=== PATIENT | male | born 1945 | race Caucasian/White ===

== ENCOUNTER 2017-02-08 11:15 | Emergency (ER) | payer OTHER, BC ==
[~2017-02-08] VITALS: Ht 175.3 cm; Wt 88.6 kg
[~2017-02-08 11:15] MED LIST: ADVAIR 250/501 DISK IH; ASPIR 8181 M1 PO; AVAPRO150 MG PO; CLARITIN10 MG PO; LEVAQUIN750 MG PO; LOFIBRA,TRIGLI160 MG PO; LORATADINE10 M2 PO; LOW DOSE ASPIRI81 M1 PO; NIACIN500 M1; NIACIN500 M1 PO; NIASPAN,SLO-N1000 MG PO; PREDNISONE20 MG PO; SIMVASTATIN40 MG PO; SINGULAIR10 MG PO; SPIRIVA1 INHALATI IH; TOPROL XL50 MG PO; TRIGLIDE160 MG PO; VENTOLIN HFA18 GM IH; ZESTRIL,PRINIVI20 MG PO; ZITHROMAX Z-PA250 MG PO; ZOCOR40 MG PO
[2017-02-08 12:54] LABS: BASOPHIL COUNT 0.1 K/uL (0-0.1); EOSINOPHIL (%) 2.5 % (0-5); EOSINOPHIL COUNT 0.3 K/uL (0-0.3); HEMATOCRIT 45.8 % (38.0-50.0); IMMATURE GRANULOCYTE (%) 1.4 % (0.0-0.7); IMMATURE GRANULOCYTE COUNT 0.2 K/uL; INSTRUMENT ABS NEUTROPHIL CT 7.8 K/uL; LYMPHOCYTE COUNT 1.8 K/uL (1.0-2.8); MCHC 32.3 G/DL (30.0-36.0); MCV 89.8 FL (86-99); MEAN PLAT.VOLUME 10.2 uM^3 (9.0-12.4); MONOCYTE COUNT 0.8 K/uL (0-0.8); NEUTROPHIL (%) 72.2 % (45-76); NEUTROPHIL COUNT 7.8 K/uL (1.8-6.4); PLATELET COUNT 330 K/uL (156-360); RBC DIS.WIDTH-CV 12.8 % (11.8-14.6); RBC DIS.WIDTH-SD 41.9 % (39-53); WHITE BLOOD COUNT 10.8 K/uL (4.1-10.2)
[2017-02-08 13:07] LABS: CHLORIDE 109 mEq/L (99-109); POTASSIUM 4.3 mEq/L (3.7-5.4); SODIUM 145 mEq/L (136-147)
[2017-02-08 13:09] LABS: GLUCOSE 141 mg/dL (70-99)
[2017-02-08 13:10] LABS: ANION GAP 12 MEQ/L (2-14)
[2017-02-08 13:11] LABS: TOTAL BILIRUBIN 0.4 mg/dL (0.0-1.0)
[2017-02-08 13:12] LABS: ALKALINE PHOSPHATASE 69 IU/L (3-129)
[2017-02-08 13:13] LABS: GFR ESTIMATE (CALCULATED) > 59 mL/min/
[2017-02-08 13:14] LABS: UREA NITROGEN (BUN) 15 mg/dL (9-23)
[2017-02-08 13:16] LABS: LIPASE 30 U/L (1.0-51.0)
[2017-02-08 13:55] LABS: TROP-I INTERPRETATION NEGATIVE; TROPONIN-I < 0.01 ng/mL (0.0-0.30)
[2017-02-08] MEDS ORDERED: COLACE100 MG PO (14:05)
[2017-02-08] MEDS ORDERED: ZOFRAN ODT8 MG PO (14:05)
[2017-02-08] MEDS ORDERED: CARAFATE1 GM PO (14:05)
[2017-02-08] MEDS ORDERED: PRILOSEC OTC20 MG PO (14:05)
[2017-02-08 14:59] VITALS: BP 149/93
== END 2017-02-08 14:45 | disposition home or self-care (01) ==
LOC: EME 11:15
PROVIDERS: Emergency Medicine
DX: K29.70 Gastritis, unspecified, without bleeding (principal); J44.9 Chronic obstructive pulmonary disease, unspecified; I10 Essential (primary) hypertension; I25.2 Old myocardial infarction; Z87.891 Personal history of nicotine dependence
CPT/HCPCS: 74177; 80053; 83690; 84484; 85025; 93005; 99281; 99285; J1170; J7030; J7050; S0028

== ENCOUNTER 2017-04-04 10:16 | Inpatient (IN) | payer OTHER, BC ==
[~2017-04-04] VITALS: Ht 175.3 cm; Wt 82.8 kg
[~2017-04-04 10:16] MED LIST changes: +CARAFATE1 GM PO; +COLACE100 MG PO; +PRILOSEC OTC20 MG PO; +ZOFRAN ODT8 MG PO
[2017-04-04 10:55] LABS: HEMATOCRIT 46.1 % (38.0-50.0); MCH 28.3 PG (29.0-34.0); MCHC 31.7 G/DL (30.0-36.0); MCV 89.3 FL (86-99); MEAN PLAT.VOLUME 9.4 uM^3 (9.0-12.4); PLATELET COUNT 270 K/uL (156-360); RBC DIS.WIDTH-CV 14.6 % (11.8-14.6); RBC DIS.WIDTH-SD 47.7 % (39-53); RED BLOOD COUNT 5.16 M/uL (4.00-5.50)
[2017-04-04 11:12] LABS: CHLORIDE 103 mEq/L (99-109); POTASSIUM 4.4 mEq/L (3.7-5.4); SODIUM 139 mEq/L (136-147)
[2017-04-04 11:13] LABS: GLUCOSE 114 mg/dL (70-99)
[2017-04-04 11:15] LABS: ANION GAP 12 MEQ/L (2-14)
[2017-04-04 11:17] LABS: GFR ESTIMATE (CALCULATED) > 59 mL/min/
[2017-04-04 11:18] LABS: TROP-I INTERPRETATION NEGATIVE; TROPONIN-I < 0.01 ng/mL (0.0-0.30); UREA NITROGEN (BUN) 23 mg/dL (9-23)
[2017-04-04] MEDS ORDERED: LORATADINE10 M2 PO (15:15)
[2017-04-04] MEDS ORDERED: PREDNISONE5 MG PO (15:17)
[2017-04-04] MEDS ORDERED: ERGOCALCIF50000 UNIT PO (15:18)
[2017-04-04] MEDS ORDERED: SPIRIVA1 INHALATI IH (15:18)
[2017-04-04] MEDS ORDERED: ACETAMINOPHEN500 M9 PO (15:19)
[2017-04-04 21:18] LABS: D-DIMER ELISA > 4.00 mg/L FEU (< 0.57)
[2017-04-04 21:24] LABS: TOTAL BILIRUBIN 0.7 mg/dL (0.0-1.0)
[2017-04-04 21:25] LABS: ALKALINE PHOSPHATASE 124 IU/L (3-129)
[2017-04-04 21:28] LABS: DIRECT BILIRUBIN 0.3 mg/dL (0.0-0.3)
[2017-04-04 21:31] LABS: TROP-I INTERPRETATION NEGATIVE; TROPONIN-I < 0.01 ng/mL (0.0-0.30)
[2017-04-04 22:17] VITALS: BP 171/79
[2017-04-05] VITALS (8 sets, daily range): BP systolic 93–131; BP diastolic 53–74
[2017-04-05 04:31] LABS: ADD MIUA? NO; BILIRUBIN NEGATIVE; BLOOD NEGATIVE; COLOR YELLOW ((YELLOW)); GLUCOSE (STRIP) NEGATIVE; KETONES NEGATIVE; LEUKOCYTES NEGATIVE; NITRITE NEGATIVE; PROTEIN (STRIP) NEGATIVE; SPECIFIC GRAVITY 1.014 (1.000-1.030); UROBILINOGEN 0.2 MG/DL (0.2-1.0)
[2017-04-05 06:07] LABS: HEMATOCRIT 44.3 % (38.0-50.0); MCH 28.6 PG (29.0-34.0); MCHC 32.3 G/DL (30.0-36.0); MCV 88.6 FL (86-99); MEAN PLAT.VOLUME 9.5 uM^3 (9.0-12.4); PLATELET COUNT 261 K/uL (156-360); RBC DIS.WIDTH-CV 14.7 % (11.8-14.6); RBC DIS.WIDTH-SD 47.3 % (39-53); WHITE BLOOD COUNT 15.3 K/uL (4.1-10.2)
[2017-04-05 06:36] LABS: ANION GAP 11 MEQ/L (2-14); CHLORIDE 99 MEQ/L (99-109); GFR ESTIMATE (CALCULATED) > 59 mL/min/; GLUCOSE 111 mg/dL (70-99); POTASSIUM 4.6 MEQ/L (3.7-5.4); SAMPLE HEMOLYSIS CHECK 0; SAMPLE ICTERIC CHECK 0; SAMPLE LIPEMIA CHECK 0; SODIUM 135 MEQ/L (136-147); UREA NITROGEN (BUN) 17 mg/dL (9-23)
[2017-04-05 06:43] LABS: TROP-I INTERPRETATION NEGATIVE; TROPONIN-I < 0.01 ng/mL (0.0-0.30)
[2017-04-06 03:52] VITALS: BP 127/74
[2017-04-06 05:58] LABS: EOSINOPHIL (%) 0.2 % (0-5); HEMATOCRIT 40.4 % (38.0-50.0); IMMATURE GRANULOCYTE (%) 1.3 % (0.0-0.7); IMMATURE GRANULOCYTE COUNT 0.2 K/uL; LYMPHOCYTE COUNT 1.9 K/uL (1.0-2.8); MCH 28.3 PG (29.0-34.0); MCHC 31.9 G/DL (30.0-36.0); MCV 88.6 FL (86-99); MEAN PLAT.VOLUME 9.5 uM^3 (9.0-12.4); MONOCYTE (%) 9.3 % (3-12); MONOCYTE COUNT 1.1 K/uL (0-0.8); NEUTROPHIL (%) 73.6 % (45-76); PLATELET COUNT 215 K/uL (156-360); RBC DIS.WIDTH-CV 14.6 % (11.8-14.6); RBC DIS.WIDTH-SD 47.6 % (39-53); RED BLOOD COUNT 4.56 M/uL (4.00-5.50); WHITE BLOOD COUNT 12.2 K/uL (4.1-10.2)
[2017-04-06 06:22] LABS: IMMUNOGLOBULIN A 236 MG/DL (40-350); IMMUNOGLOBULIN G 527 MG/DL (650-1600); IMMUNOGLOBULIN M 70 MG/DL (50-300)
[2017-04-06 07:30] VITALS: BP 117/77
[2017-04-06 08:25] LABS: ANION GAP 10 MEQ/L (2-14); CHLORIDE 102 MEQ/L (99-109); GFR ESTIMATE (CALCULATED) > 59 mL/min/; LACTATE DEHYDROGENASE 419 IU/L (20-246); POTASSIUM 4.5 MEQ/L (3.7-5.4); SAMPLE HEMOLYSIS CHECK 0; SAMPLE ICTERIC CHECK 0; SAMPLE LIPEMIA CHECK 0; SODIUM 137 MEQ/L (136-147); UREA NITROGEN (BUN) 21 mg/dL (9-23)
[2017-04-06 08:40] LABS: GLUCOSE 172 mg/dL (70-99)
[2017-04-06 11:20] VITALS: BP 136/65
[2017-04-06 15:25] VITALS: BP 132/77
[2017-04-06 18:54] VITALS: BP 138/64
[2017-04-06 23:06] VITALS: BP 142/81
[2017-04-06 23:18] LABS: URINE TOTAL PROTEIN 20 MG/DL (0-10)
[2017-04-07 03:14] VITALS: BP 148/69
[2017-04-07 07:02] LABS: GLOBULINS 2.7 G/DL (2.3-3.5)
[2017-04-07 07:19] VITALS: BP 111/70
[2017-04-07 10:32] LABS: IFE GEL NO. 72-9
[2017-04-07 11:22] VITALS: BP 137/78
[2017-04-07 11:32] LABS: HEMATOCRIT 41.5 % (38.0-50.0); MCH 28.4 PG (29.0-34.0); MCHC 31.8 G/DL (30.0-36.0); MCV 89.4 FL (86-99); MEAN PLAT.VOLUME 9.7 uM^3 (9.0-12.4); PLATELET COUNT 190 K/uL (156-360); RBC DIS.WIDTH-CV 14.8 % (11.8-14.6); RBC DIS.WIDTH-SD 48.1 % (39-53); RED BLOOD COUNT 4.64 M/uL (4.00-5.50); WHITE BLOOD COUNT 11.8 K/uL (4.1-10.2)
[2017-04-07 11:54] LABS: ANION GAP 9 MEQ/L (2-14); CHLORIDE 100 MEQ/L (99-109); GFR ESTIMATE (CALCULATED) > 59 mL/min/; POTASSIUM 4.6 MEQ/L (3.7-5.4); SAMPLE HEMOLYSIS CHECK 0; SAMPLE ICTERIC CHECK 0; SAMPLE LIPEMIA CHECK 0; SODIUM 135 MEQ/L (136-147); UREA NITROGEN (BUN) 18 mg/dL (9-23)
[2017-04-07 11:58] LABS: GLUCOSE 109 mg/dL (70-99)
[2017-04-07 13:35] LABS: ALBUMIN PERCENT 48.3 %; ALPHA-1 GLOBULIN 0.35 G/DL (0.15-0.40); ALPHA-1 PERCENT 6.1 %; ALPHA-2 GLOBULIN 1.05 G/DL (0.45-0.85); ALPHA-2 PERCENT 18.1 %; GAMMA PERCENT 14.5 %
[2017-04-07 15:32] VITALS: BP 108/68
[2017-04-07 20:50] VITALS: BP 107/75
[2017-04-08] VITALS (9 sets, daily range): BP systolic 92–133; BP diastolic 57–69
[2017-04-08 06:49] LABS: EOSINOPHIL (%) 1.2 % (0-5); EOSINOPHIL COUNT 0.1 K/uL (0-0.3); IMMATURE GRANULOCYTE COUNT 0.1 K/uL; INSTRUMENT ABS NEUTROPHIL CT 7.7 K/uL; MCH 28.6 PG (29.0-34.0); MCHC 32.1 G/DL (30.0-36.0); MCV 89.2 FL (86-99); MEAN PLAT.VOLUME 9.8 uM^3 (9.0-12.4); MONOCYTE (%) 12.3 % (3-12); MONOCYTE COUNT 1.4 K/uL (0-0.8); NEUTROPHIL (%) 67.8 % (45-76); NEUTROPHIL COUNT 7.7 K/uL (1.8-6.4); PLATELET COUNT 221 K/uL (156-360); RBC DIS.WIDTH-CV 14.8 % (11.8-14.6); RED BLOOD COUNT 4.82 M/uL (4.00-5.50); WHITE BLOOD COUNT 11.4 K/uL (4.1-10.2)
[2017-04-08 07:19] LABS: ALKALINE PHOSPHATASE 93 IU/L (3-129); ANION GAP 11 MEQ/L (2-14); CHLORIDE 97 MEQ/L (99-109); GFR ESTIMATE (CALCULATED) > 59 mL/min/; GLUCOSE 111 mg/dL (70-99); POTASSIUM 4.8 MEQ/L (3.7-5.4); SAMPLE HEMOLYSIS CHECK 0; SAMPLE ICTERIC CHECK 0; SAMPLE LIPEMIA CHECK 0; SODIUM 135 MEQ/L (136-147); TOTAL BILIRUBIN 1.2 MG/DL (0.0-1.0); UREA NITROGEN (BUN) 18 mg/dL (9-23)
[2017-04-08 09:14] LABS: INTER. NORMALIZED RATIO 1.2; PROTHROMBIN TIME 11.9 (9.2-11.2)
[2017-04-09 04:27] VITALS: BP 111/67
[2017-04-09 08:52] VITALS: BP 113/66
[2017-04-09] MEDS ORDERED: GABAPENTIN100 MG PO (09:10)
[2017-04-09] MEDS ORDERED: IRBESARTAN75 MG PO (09:10)
[2017-04-09] MEDS ORDERED: XARELTO20 MG PO (09:10)
[2017-04-09] MEDS ORDERED: ENDOCET 5-3251 EACH PO (09:10)
[2017-04-09 09:57] LABS: IFE GEL NO. 73-4
[2017-04-10 13:42] LABS: Flow Clinical Information NOT PROVIDED (()); Flow Number of Markers 22 (()); Flow Spec Viability 58 % (())
== END 2017-04-09 13:30 | disposition home or self-care (01) | DRG 988 ==
LOC: EME 10:16 → 5WEST 20:10 → EDOF 20:10 → 5WEST 22:04 → 4EAST 04-05 14:15 → 5WEST 04-05 14:15 → 4EAST 04-05 20:46
PROVIDERS: Anesthesiology; Hospitalist; Internal Medicine; Nurse Practitioner Adult Health; Radiology Diagnostic Radiology
PROC: 0PB43ZX Excision of Thoracic Vertebra, Percutaneous Approach, Diagnostic (ICD-10-PCS; principal; 2017-04-08)
DX: I48.0 Paroxysmal atrial fibrillation (principal); C79.51 Secondary malignant neoplasm of bone; J44.9 Chronic obstructive pulmonary disease, unspecified; M47.892 Other spondylosis, cervical region; E78.5 Hyperlipidemia, unspecified; I10 Essential (primary) hypertension; I25.10 Atherosclerotic heart disease of native coronary artery without angina pectoris; K76.0 Fatty (change of) liver, not elsewhere classified; M35.3 Polymyalgia rheumatica; T38.0X5A Adverse effect of glucocorticoids and synthetic analogues, initial encounter; M48.02 Spinal stenosis, cervical region; M54.14 Radiculopathy, thoracic region; E66.01 Morbid (severe) obesity due to excess calories; Z79.01 Long term (current) use of anticoagulants; Z95.5 Presence of coronary angioplasty implant and graft; Z68.27 Body mass index [BMI] 27.0-27.9, adult; Z87.891 Personal history of nicotine dependence; I25.2 Old myocardial infarction; Z83.3 Family history of diabetes mellitus; Z82.49 Family history of ischemic heart disease and other diseases of the circulatory system
CPT/HCPCS: 71020; 71275; 72128; 72156; 72157; 77012; 80048; 80053; 80076; 81003; 82784 90; 83605; 83615; 84165; 84484; 85025; 85027; 85379; 85610; 85730; 86334; 86335; 87040; 88184 90; 88185 90; 88189 90; 88305; 88311; 88341 TC; 88342 TC; 93005; 93970; 94640; 94640 76; 94664; 94799; 99202; 99281; 99285; G0378; J0696; J1160; J1644; J2405; J3010; J7030; J7050; J7512

== ENCOUNTER 2017-05-13 09:38 | Inpatient (IN) | payer OTHER, BC ==
[~2017-05-13] VITALS: Ht 176.5 cm; Wt 76.6 kg
[2017-05-13] VITALS (11 sets, daily range): BP systolic 98–137; BP diastolic 64–85
[~2017-05-13 09:38] MED LIST changes: +ACETAMINOPHEN500 M9 PO; +ENDOCET 5-3251 EACH PO; +ERGOCALCIF50000 UNIT PO; +GABAPENTIN100 MG PO; +IRBESARTAN75 MG PO; +PREDNISONE5 MG PO; +XARELTO20 MG PO
[2017-05-13 10:33] LABS: EOSINOPHIL (%) 1.2 % (0-5); EOSINOPHIL COUNT 0.1 K/uL (0-0.3); HEMATOCRIT 41.2 % (38.0-50.0); IMMATURE GRANULOCYTE (%) 0.9 % (0.0-0.7); IMMATURE GRANULOCYTE COUNT 0.1 K/uL; INSTRUMENT ABS NEUTROPHIL CT 8.4 K/uL; LYMPHOCYTE COUNT 2.3 K/uL (1.0-2.8); MCH 27.7 PG (29.0-34.0); MCHC 31.6 G/DL (30.0-36.0); MCV 87.7 FL (86-99); MEAN PLAT.VOLUME 9.4 uM^3 (9.0-12.4); NEUTROPHIL (%) 70.6 % (45-76); NEUTROPHIL COUNT 8.4 K/uL (1.8-6.4); PLATELET COUNT 399 K/uL (156-360); RBC DIS.WIDTH-CV 15.9 % (11.8-14.6); RBC DIS.WIDTH-SD 51.1 % (39-53); WHITE BLOOD COUNT 11.9 K/uL (4.1-10.2)
[2017-05-13 10:56] LABS: ANION GAP 15 MEQ/L (2-14); CHLORIDE 98 MEQ/L (99-109); POTASSIUM 4.3 MEQ/L (3.7-5.4); SAMPLE HEMOLYSIS CHECK 0; SAMPLE ICTERIC CHECK 0; SAMPLE LIPEMIA CHECK 0; SODIUM 135 MEQ/L (136-147); TOTAL BILIRUBIN 0.9 MG/DL (0.0-1.0)
[2017-05-13 11:02] LABS: ALKALINE PHOSPHATASE 142 IU/L (3-129); GFR ESTIMATE (CALCULATED) > 59 mL/min/; GLUCOSE 86 mg/dL (70-99); LIPASE 40 U/L (1.0-51.0); UREA NITROGEN (BUN) 32 mg/dL (9-23)
[2017-05-13] MEDS ORDERED: IRBESARTAN75 MG PO (14:23)
[2017-05-13] MEDS ORDERED: ENDOCET 5-3251 EACH PO (14:27)
[2017-05-13] MEDS ORDERED: MORPHINE SULFAT30 M2 PO (14:33)
[2017-05-13 19:23] LABS: POINT-OF-CARE METER ID UU13113700
[2017-05-13 21:40] LABS: HEMATOCRIT 37.1 % (38.0-50.0); MCH 28.5 PG (29.0-34.0); MCHC 32.9 G/DL (30.0-36.0); MCV 86.7 FL (86-99); MEAN PLAT.VOLUME 9.1 uM^3 (9.0-12.4); PLATELET COUNT 355 K/uL (156-360); RBC DIS.WIDTH-CV 15.9 % (11.8-14.6); RBC DIS.WIDTH-SD 50.7 % (39-53); RED BLOOD COUNT 4.28 M/uL (4.00-5.50); WHITE BLOOD COUNT 11.7 K/uL (4.1-10.2)
[2017-05-13 21:59] LABS: POINT-OF-CARE METER ID UU13113831
[2017-05-13 22:05] LABS: ALKALINE PHOSPHATASE 122 IU/L (3-129); ANION GAP 11 MEQ/L (2-14); CHLORIDE 106 MEQ/L (99-109); GFR ESTIMATE (CALCULATED) > 59 mL/min/; GLUCOSE 92 mg/dL (70-99); POTASSIUM 4.3 MEQ/L (3.7-5.4); SAMPLE HEMOLYSIS CHECK 0; SAMPLE ICTERIC CHECK 0; SAMPLE LIPEMIA CHECK 0; SODIUM 137 MEQ/L (136-147); TOTAL BILIRUBIN 0.7 MG/DL (0.0-1.0); UREA NITROGEN (BUN) 19 mg/dL (9-23)
[2017-05-14 03:35] VITALS: BP 114/56
[2017-05-14 05:37] LABS: ANION GAP 10 MEQ/L (2-14); CHLORIDE 108 MEQ/L (99-109); GFR ESTIMATE (CALCULATED) > 59 mL/min/; GLUCOSE 59 mg/dL (70-99); POTASSIUM 4.8 MEQ/L (3.7-5.4); SAMPLE HEMOLYSIS CHECK 0; SAMPLE ICTERIC CHECK 0; SAMPLE LIPEMIA CHECK 0; SODIUM 141 MEQ/L (136-147); UREA NITROGEN (BUN) 16 mg/dL (9-23)
[2017-05-14 07:19] VITALS: BP 112/56
[2017-05-14 07:43] LABS: POINT-OF-CARE METER ID UU13113698
[2017-05-14 08:34] LABS: POINT-OF-CARE METER ID UU13113781; POINT-OF-CARE USER ID ENVKC36
[2017-05-14 11:36] VITALS: BP 120/57
[2017-05-14 12:05] LABS: POINT-OF-CARE USER ID ENVKC36
[2017-05-14 16:05] VITALS: BP 119/59
[2017-05-14 16:16] LABS: POINT-OF-CARE METER ID UU14174216
[2017-05-14 17:00] LABS: INTER. NORMALIZED RATIO 2.1; PROTHROMBIN TIME 23.3 SEC (10.2-12.9)
[2017-05-14 19:15] VITALS: BP 129/65
[2017-05-14 20:50] LABS: POINT-OF-CARE METER ID UU14174216
[2017-05-14 23:40] VITALS: BP 138/67
[2017-05-15] VITALS (7 sets, daily range): BP systolic 113–143; BP diastolic 56–80
[2017-05-15 05:38] LABS: HEMATOCRIT 30.2 % (38.0-50.0); MCH 29.6 PG (29.0-34.0); MCHC 33.1 G/DL (30.0-36.0); MCV 89.3 FL (86-99); MEAN PLAT.VOLUME 9.8 uM^3 (9.0-12.4); PLATELET COUNT 280 K/uL (156-360); RBC DIS.WIDTH-CV 15.9 % (11.8-14.6); RBC DIS.WIDTH-SD 51.7 % (39-53); RED BLOOD COUNT 3.38 M/uL (4.00-5.50); WHITE BLOOD COUNT 8.5 K/uL (4.1-10.2)
[2017-05-15 05:50] LABS: ANION GAP 7 MEQ/L (2-14); CHLORIDE 105 MEQ/L (99-109); GFR ESTIMATE (CALCULATED) > 59 mL/min/; GLUCOSE 62 mg/dL (70-99); POTASSIUM 4.7 MEQ/L (3.7-5.4); SAMPLE HEMOLYSIS CHECK 0; SAMPLE ICTERIC CHECK 0; SAMPLE LIPEMIA CHECK 0; SODIUM 136 MEQ/L (136-147); UREA NITROGEN (BUN) 8 mg/dL (9-23)
[2017-05-15 07:29] LABS: POINT-OF-CARE METER ID UU14174216; POINT-OF-CARE USER ID NUTSLF44
[2017-05-15 11:33] LABS: POINT-OF-CARE METER ID UU14174216; POINT-OF-CARE USER ID NUTSLF44
[2017-05-15 16:28] LABS: POINT-OF-CARE METER ID UU14174216; POINT-OF-CARE USER ID NUTSLF44
[2017-05-16 03:00] VITALS: BP 126/60
[2017-05-16 06:18] LABS: INTER. NORMALIZED RATIO 1.5; PROTHROMBIN TIME 17.1 SEC (10.2-12.9)
[2017-05-16 06:38] VITALS: BP 103/60
[2017-05-16 11:34] VITALS: BP 138/65
[2017-05-16 15:29] VITALS: BP 127/63
[2017-05-16 19:45] VITALS: BP 107/64
[2017-05-16 23:00] VITALS: BP 110/58
[2017-05-17 04:00] VITALS: BP 100/54
[2017-05-17 07:29] VITALS: BP 95/52
[2017-05-17] MEDS ORDERED: ZOFRAN4 MG PO (09:48)
[2017-05-17 11:15] VITALS: BP 102/51
== END 2017-05-17 11:20 | disposition home or self-care (01) | DRG 436 ==
LOC: EME 09:38 → EDOF 15:28 → 5WEST 15:28 → 4EAST 21:13
PROVIDERS: Emergency Medicine; Hospitalist; Internal Medicine; Physician Assistant; Radiology Diagnostic Radiology
PROC: 0FB03ZX Excision of Liver, Percutaneous Approach, Diagnostic (ICD-10-PCS; principal; 2017-05-16)
DX: C78.7 Secondary malignant neoplasm of liver and intrahepatic bile duct (principal); C79.51 Secondary malignant neoplasm of bone; K76.0 Fatty (change of) liver, not elsewhere classified; C80.1 Malignant (primary) neoplasm, unspecified; J44.1 Chronic obstructive pulmonary disease with (acute) exacerbation; I48.0 Paroxysmal atrial fibrillation; E86.0 Dehydration; I10 Essential (primary) hypertension; R11.2 Nausea with vomiting, unspecified; G89.3 Neoplasm related pain (acute) (chronic); C78.89 Secondary malignant neoplasm of other digestive organs; E78.5 Hyperlipidemia, unspecified; I25.10 Atherosclerotic heart disease of native coronary artery without angina pectoris; I25.2 Old myocardial infarction; Z79.01 Long term (current) use of anticoagulants; Z79.82 Long term (current) use of aspirin; Z79.899 Other long term (current) drug therapy; Z87.891 Personal history of nicotine dependence; Z90.49 Acquired absence of other specified parts of digestive tract; M54.9 Dorsalgia, unspecified; R10.9 Unspecified abdominal pain
CPT/HCPCS: 71010; 74177; 77012; 80048; 80053; 81003; 82948; 83605; 83690; 85025; 85027; 85610; 85730; 87040; 87086; 88307; 88341 TC; 88342 TC; 93005; 93306; 94640; 94640 76; 94799; 99202; 99281; 99285; J1160; J1644; J1815; J2405; J2765; J3010; J7030; J7040; J7050; J7512

== ENCOUNTER 2017-05-21 10:15 | Inpatient (IN) | payer OTHER, BC ==
[2017-05-21] VITALS (13 sets, daily range): BP systolic 85–162; BP diastolic 52–102
[~2017-05-21] VITALS: Ht 175.3 cm; Wt 69.4 kg
[~2017-05-21 10:15] MED LIST changes: +MORPHINE SULFAT30 M2 PO; +ZOFRAN4 MG PO
[2017-05-21 11:16] LABS: HEMATOCRIT 38.1 % (38.0-50.0); MCH 27.8 PG (29.0-34.0); MCHC 31.5 G/DL (30.0-36.0); MCV 88.2 FL (86-99); MEAN PLAT.VOLUME 9.8 uM^3 (9.0-12.4); NRBC (%) 0.1 /100 WBC (0-0); PLATELET COUNT 309 K/uL (156-360); RBC DIS.WIDTH-SD 51.8 % (39-53); RED BLOOD COUNT 4.32 M/uL (4.00-5.50); WHITE BLOOD COUNT 15.7 K/uL (4.1-10.2)
[2017-05-21 11:21] LABS: CHLORIDE 97 mEq/L (99-109); POTASSIUM 4.3 mEq/L (3.7-5.4); SODIUM 136 mEq/L (136-147)
[2017-05-21 11:23] LABS: GLUCOSE 117 mg/dL (70-99)
[2017-05-21 11:24] LABS: ANION GAP 12 MEQ/L (2-14)
[2017-05-21 11:27] LABS: GFR ESTIMATE (CALCULATED) 58 mL/min/
[2017-05-21 11:28] LABS: UREA NITROGEN (BUN) 23 mg/dL (9-23)
[2017-05-21 12:12] LABS: TROP-I INTERPRETATION NEGATIVE; TROPONIN-I < 0.01 ng/mL (0.0-0.30)
[2017-05-21] MEDS ORDERED: PROMETHAZINE HC25 M1 PO (14:18)
[2017-05-22] VITALS (7 sets, daily range): BP systolic 90–118; BP diastolic 40–78
[2017-05-22 07:07] LABS: ANION GAP 9 MEQ/L (2-14); CHLORIDE 104 MEQ/L (99-109); POTASSIUM 4.2 MEQ/L (3.7-5.4); SAMPLE HEMOLYSIS CHECK 0; SAMPLE ICTERIC CHECK 0; SAMPLE LIPEMIA CHECK 0; SODIUM 137 MEQ/L (136-147); UREA NITROGEN (BUN) 20 mg/dL (9-23)
[2017-05-22 07:12] LABS: HEMATOCRIT 32.4 % (38.0-50.0); MCH 27.5 PG (29.0-34.0); MCHC 30.9 G/DL (30.0-36.0); MCV 89.3 FL (86-99); MEAN PLAT.VOLUME 9.9 uM^3 (9.0-12.4); PLATELET COUNT 233 K/uL (156-360); RBC DIS.WIDTH-CV 16.5 % (11.8-14.6); RBC DIS.WIDTH-SD 53.4 % (39-53); RED BLOOD COUNT 3.63 M/uL (4.00-5.50); WHITE BLOOD COUNT 15.1 K/uL (4.1-10.2)
[2017-05-22 07:15] LABS: GFR ESTIMATE (CALCULATED) > 59 mL/min/; GLUCOSE 86 mg/dL (70-99)
[2017-05-22 12:22] LABS: MAGNESIUM 1.4 mg/dl (1.3-2.7)
[2017-05-23 01:44] VITALS: BP 103/61
[2017-05-23 04:15] VITALS: BP 88/45
[2017-05-23 06:57] LABS: HEMATOCRIT 29.9 % (38.0-50.0); MCHC 32.4 G/DL (30.0-36.0); MCV 89.3 FL (86-99); MEAN PLAT.VOLUME 9.7 uM^3 (9.0-12.4); PLATELET COUNT 233 K/uL (156-360); RBC DIS.WIDTH-CV 16.8 % (11.8-14.6); RBC DIS.WIDTH-SD 55.1 % (39-53); RED BLOOD COUNT 3.35 M/uL (4.00-5.50); WHITE BLOOD COUNT 13.2 K/uL (4.1-10.2)
[2017-05-23 07:21] LABS: AMYLASE 30 IU/L (1-118); ANION GAP 8 MEQ/L (2-14); CHLORIDE 106 MEQ/L (99-109); GFR ESTIMATE (CALCULATED) > 59 mL/min/; GLUCOSE 84 mg/dL (70-99); LIPASE 30 U/L (1.0-51.0); POTASSIUM 4.8 MEQ/L (3.7-5.4); SAMPLE HEMOLYSIS CHECK 0; SAMPLE ICTERIC CHECK 0; SAMPLE LIPEMIA CHECK 0; SODIUM 136 MEQ/L (136-147); UREA NITROGEN (BUN) 25 mg/dL (9-23)
[2017-05-23 07:44] VITALS: BP 109/55
[2017-05-23 08:23] LABS: MAGNESIUM 2.3 mg/dl (1.3-2.7)
[2017-05-23 11:21] VITALS: BP 98/52
[2017-05-23 16:20] VITALS: BP 102/58
[2017-05-23 20:49] VITALS: BP 115/67
[2017-05-24 00:06] VITALS: BP 117/71
[2017-05-24 03:50] VITALS: BP 123/65
[2017-05-24 07:43] VITALS: BP 94/52
[2017-05-24 09:32] LABS: HEMATOCRIT 30.2 % (38.0-50.0); MCH 28.7 PG (29.0-34.0); MCHC 32.5 G/DL (30.0-36.0); MCV 88.6 FL (86-99); MEAN PLAT.VOLUME 10.3 uM^3 (9.0-12.4); PLATELET COUNT 222 K/uL (156-360); RBC DIS.WIDTH-CV 16.5 % (11.8-14.6); RBC DIS.WIDTH-SD 53.4 % (39-53); RED BLOOD COUNT 3.41 M/uL (4.00-5.50); WHITE BLOOD COUNT 10.8 K/uL (4.1-10.2)
[2017-05-24 10:00] LABS: ANION GAP 10 MEQ/L (2-14); CHLORIDE 106 MEQ/L (99-109); GFR ESTIMATE (CALCULATED) > 59 mL/min/; POTASSIUM 4.6 MEQ/L (3.7-5.4); SAMPLE HEMOLYSIS CHECK 0; SAMPLE ICTERIC CHECK 0; SAMPLE LIPEMIA CHECK 0; SODIUM 136 MEQ/L (136-147); UREA NITROGEN (BUN) 26 mg/dL (9-23)
[2017-05-24 10:03] LABS: GLUCOSE 135 mg/dL (70-99)
[2017-05-24 11:44] VITALS: BP 115/58
[2017-05-24 15:41] VITALS: BP 84/60
[2017-05-25] VITALS (9 sets, daily range): BP systolic 79–139; BP diastolic 42–74
[2017-05-25 06:56] LABS: ANION GAP 9 MEQ/L (2-14); CHLORIDE 104 MEQ/L (99-109); GFR ESTIMATE (CALCULATED) > 59 mL/min/; GLUCOSE 90 mg/dL (70-99); POTASSIUM 4.4 MEQ/L (3.7-5.4); SAMPLE HEMOLYSIS CHECK 0; SAMPLE ICTERIC CHECK 0; SAMPLE LIPEMIA CHECK 0; SODIUM 136 MEQ/L (136-147); UREA NITROGEN (BUN) 22 mg/dL (9-23)
[2017-05-25 07:39] LABS: HEMATOCRIT 30.9 % (38.0-50.0); MCH 28.7 PG (29.0-34.0); MCV 86.8 FL (86-99); PLATELET COUNT 195 K/uL (156-360); RBC DIS.WIDTH-CV 15.9 % (11.8-14.6); RBC DIS.WIDTH-SD 50.8 % (39-53); RED BLOOD COUNT 3.56 M/uL (4.00-5.50); WHITE BLOOD COUNT 8.5 K/uL (4.1-10.2)
[2017-05-26] VITALS (7 sets, daily range): BP systolic 98–130; BP diastolic 51–62
[2017-05-26 06:47] LABS: ANION GAP 7 MEQ/L (2-14); CHLORIDE 99 MEQ/L (99-109); GLUCOSE 95 mg/dL (70-99); POTASSIUM 3.9 MEQ/L (3.7-5.4); SAMPLE HEMOLYSIS CHECK 0; SAMPLE ICTERIC CHECK 0; SAMPLE LIPEMIA CHECK 0; SODIUM 138 MEQ/L (136-147); UREA NITROGEN (BUN) 23 mg/dL (9-23)
[2017-05-26 07:02] LABS: GFR ESTIMATE (CALCULATED) 14 mL/min/
[2017-05-26 08:19] LABS: HEMATOCRIT 28.6 % (38.0-50.0); MCH 28.4 PG (29.0-34.0); MCHC 31.8 G/DL (30.0-36.0); MCV 89.4 FL (86-99); MEAN PLAT.VOLUME 10.8 uM^3 (9.0-12.4); PLATELET COUNT 160 K/uL (156-360); RBC DIS.WIDTH-CV 16.3 % (11.8-14.6); RBC DIS.WIDTH-SD 53.6 % (39-53); WHITE BLOOD COUNT 5.3 K/uL (4.1-10.2)
[2017-05-26 09:42] LABS: ADD MIUA? YES; BILIRUBIN NEGATIVE; BLOOD SMALL; COLOR YELLOW ((YELLOW)); GLUCOSE (STRIP) NEGATIVE; KETONES NEGATIVE; LEUKOCYTES NEGATIVE; NITRITE NEGATIVE; PROTEIN (STRIP) NEGATIVE; SPECIFIC GRAVITY 1.009 (1.000-1.030)
[2017-05-26 10:49] LABS: BACTERIA RARE /HPF; EPITHELIAL CELLS RARE /HPF; HYALINE CASTS 30-40 /LPF; MUCUS TRACE /LPF; RED BLOOD CELLS 30-40 /HPF (0-5); UCUL ADDED? NO; WHITE BLOOD CELLS 0-5 /HPF (0-5)
[2017-05-26 11:26] LABS: ALKALINE PHOSPHATASE 108 IU/L (3-129); ANION GAP 12 MEQ/L (2-14); CHLORIDE 104 MEQ/L (99-109); CREATINE KINASE 198 IU/L (1-294); DIRECT BILIRUBIN 1.5 mg/dL (0.0-0.3); GLUCOSE 82 mg/dL (70-99); POTASSIUM 4.4 MEQ/L (3.7-5.4); SAMPLE HEMOLYSIS CHECK 0; SAMPLE ICTERIC CHECK 0; SAMPLE LIPEMIA CHECK 0; SODIUM 141 MEQ/L (136-147); TOTAL BILIRUBIN 2.3 MG/DL (0.0-1.0); UREA NITROGEN (BUN) 22 mg/dL (9-23)
[2017-05-26 11:30] LABS: GFR ESTIMATE (CALCULATED) > 59 mL/min/; MAGNESIUM 1.7 mg/dl (1.3-2.7)
[2017-05-26 14:37] LABS: LACTATE DEHYDROGENASE 774 IU/L (20-246); URIC ACID 6.6 mg/dL (3.1-9.2)
[2017-05-27 06:18] LABS: HEMATOCRIT 28.4 % (38.0-50.0); MCH 27.8 PG (29.0-34.0); MCV 89.6 FL (86-99); MEAN PLAT.VOLUME 11.1 uM^3 (9.0-12.4); PLATELET COUNT 145 K/uL (156-360); RBC DIS.WIDTH-CV 16.2 % (11.8-14.6); RBC DIS.WIDTH-SD 53.5 % (39-53); RED BLOOD COUNT 3.17 M/uL (4.00-5.50); WHITE BLOOD COUNT 2.6 K/uL (4.1-10.2)
[2017-05-27 06:51] LABS: ANION GAP 11 MEQ/L (2-14); CHLORIDE 107 MEQ/L (99-109); GFR ESTIMATE (CALCULATED) > 59 mL/min/; GLUCOSE 102 mg/dL (70-99); POTASSIUM 4.7 MEQ/L (3.7-5.4); SAMPLE HEMOLYSIS CHECK 0; SAMPLE ICTERIC CHECK 0; SAMPLE LIPEMIA CHECK 0; SODIUM 142 MEQ/L (136-147); UREA NITROGEN (BUN) 29 mg/dL (9-23)
[2017-05-27 06:58] VITALS: BP 137/87
[2017-05-27 07:00] VITALS: BP 137/87
[2017-05-27 09:21] LABS: INTERNAL CONTROL VALID? YES
[2017-05-27 11:36] VITALS: BP 117/70
[2017-05-27 14:55] VITALS: BP 100/57
[2017-05-27 20:20] VITALS: BP 105/58
[2017-05-28 04:10] VITALS: BP 107/55
[2017-05-28 08:00] VITALS: BP 126/75
[2017-05-28 12:41] LABS: HEMATOCRIT 30.5 % (38.0-50.0); MCH 27.7 PG (29.0-34.0); MCHC 30.5 G/DL (30.0-36.0); MCV 90.8 FL (86-99); RBC DIS.WIDTH-CV 16.4 % (11.8-14.6); RBC DIS.WIDTH-SD 54.5 % (39-53); RED BLOOD COUNT 3.36 M/uL (4.00-5.50); WHITE BLOOD COUNT 2.3 K/uL (4.1-10.2)
[2017-05-28 13:06] LABS: MEAN PLAT.VOLUME 11.6 uM^3 (9.0-12.4)
[2017-05-28 13:15] LABS: PLATELET COUNT 91 K/uL (156-360)
[2017-05-28 13:33] LABS: ANION GAP 14 MEQ/L (2-14); CHLORIDE 107 MEQ/L (99-109); GFR ESTIMATE (CALCULATED) > 59 mL/min/; GLUCOSE 127 mg/dL (70-99); POTASSIUM 4.7 MEQ/L (3.7-5.4); SAMPLE HEMOLYSIS CHECK 0; SAMPLE ICTERIC CHECK 0; SAMPLE LIPEMIA CHECK 0; SODIUM 146 MEQ/L (136-147); UREA NITROGEN (BUN) 36 mg/dL (9-23)
[2017-05-28 15:07] VITALS: BP 103/76
[2017-05-28 20:24] VITALS: BP 99/60
[2017-05-29 01:10] VITALS: BP 93/51
[2017-05-29 04:24] VITALS: BP 141/87
[2017-05-29 05:54] LABS: HEMATOCRIT 26.8 % (38.0-50.0); MCH 28.3 PG (29.0-34.0); MCV 91.5 FL (86-99); RBC DIS.WIDTH-CV 16.5 % (11.8-14.6); RBC DIS.WIDTH-SD 55.8 % (39-53); RED BLOOD COUNT 2.93 M/uL (4.00-5.50)
[2017-05-29 06:03] LABS: WHITE BLOOD COUNT 1.8 K/uL (4.1-10.2)
[2017-05-29 06:10] LABS: ANION GAP 9 MEQ/L (2-14); CHLORIDE 111 MEQ/L (99-109); GFR ESTIMATE (CALCULATED) > 59 mL/min/; GLUCOSE 117 mg/dL (70-99); POTASSIUM 4.4 MEQ/L (3.7-5.4); SAMPLE HEMOLYSIS CHECK 0; SAMPLE ICTERIC CHECK 0; SAMPLE LIPEMIA CHECK 0; SODIUM 149 MEQ/L (136-147); UREA NITROGEN (BUN) 35 mg/dL (9-23)
[2017-05-29 08:00] VITALS: BP 121/61
[2017-05-29 08:03] LABS: MEAN PLAT.VOLUME 11.5 uM^3 (9.0-12.4); PLAT.SUFFICIENCY DECREASED; PLATELET COUNT 59 K/uL (156-360)
[2017-05-29 15:00] VITALS: BP 121/61
== END 2017-05-29 17:00 | DRG 435 ==
LOC: EME 10:15 → ENRESERV 13:09 → EDOF 13:11 → 4EAST 13:11 → 5EAST 13:11 → ENRESERV 13:18 → 5EAST 14:41 → ENRESERV 05-25 16:37 → 4EAST 05-25 17:54 → ENRESERV 05-29 14:55 → CANRESERV 05-29 16:04 → ENRESERV 05-29 16:52 → 4EAST 05-29 17:00 → ENRESERV 05-29 17:19 → CANRESERV 05-29 17:19
PROVIDERS: Hospitalist; Physician Assistant
DX: C25.9 Malignant neoplasm of pancreas, unspecified (principal); J18.9 Pneumonia, unspecified organism; J96.21 Acute and chronic respiratory failure with hypoxia; I50.33 Acute on chronic diastolic (congestive) heart failure; I27.2 Other secondary pulmonary hypertension; N17.9 Acute kidney failure, unspecified; E83.42 Hypomagnesemia; E44.1 Mild protein-calorie malnutrition; I95.9 Hypotension, unspecified; I11.0 Hypertensive heart disease with heart failure; J44.0 Chronic obstructive pulmonary disease with (acute) lower respiratory infection; C79.51 Secondary malignant neoplasm of bone; C78.7 Secondary malignant neoplasm of liver and intrahepatic bile duct; C78.89 Secondary malignant neoplasm of other digestive organs; E86.0 Dehydration; I25.10 Atherosclerotic heart disease of native coronary artery without angina pectoris; G89.3 Neoplasm related pain (acute) (chronic); E78.5 Hyperlipidemia, unspecified; K59.00 Constipation, unspecified; M54.5 Low back pain; I48.0 Paroxysmal atrial fibrillation; R11.2 Nausea with vomiting, unspecified; C80.1 Malignant (primary) neoplasm, unspecified; R10.9 Unspecified abdominal pain; Z66 Do not resuscitate; Z51.5 Encounter for palliative care; Z79.01 Long term (current) use of anticoagulants; I25.2 Old myocardial infarction; Z68.24 Body mass index [BMI] 24.0-24.9, adult; Z87.891 Personal history of nicotine dependence; Z90.49 Acquired absence of other specified parts of digestive tract; Z79.899 Other long term (current) drug therapy; Z79.82 Long term (current) use of aspirin
CPT/HCPCS: 36600; 70450; 71010; 71020; 76770; 80048; 80048 91; 80069; 80076; 81003; 82040; 82140; 82150; 82550; 82803; 83605; 83615; 83690; 83735; 83880; 84100; 84443; 84484; 84550; 85027; 86301 90; 87040; 87070; 87077; 87185; 87205; 87449; 93005; 94640; 94640 76; 94667; 94799; 99202; 99281; 99285; C1753; J0456; J1100; J1160; J1170; J1626; J1940; J2270; J2405; J2543; J3370; J3475; J7030; J7040; J7042; J7050; J7512; J9201; J9264; P9047; Q0167

== ENCOUNTER 2017-05-29 16:48 | Inpatient (IN) | payer OTHER ==
[~2017-05-29 16:48] MED LIST changes: +PROMETHAZINE HC25 M1 PO
== END 2017-05-30 23:00 | DRG 436 ==
LOC: 5EAST 16:48 → ENRESERV 16:49 → CANRESERV 16:49 → 4EAST 17:02 → 5EAST 17:02 → ENRESERV 17:03 → CANRESERV 17:05 → ENRESERV 17:05 → 5EAST 19:58
DX: C25.9 Malignant neoplasm of pancreas, unspecified (principal); C79.51 Secondary malignant neoplasm of bone; C78.7 Secondary malignant neoplasm of liver and intrahepatic bile duct; D61.818 Other pancytopenia; N17.9 Acute kidney failure, unspecified; G89.3 Neoplasm related pain (acute) (chronic); Z51.5 Encounter for palliative care; Z66 Do not resuscitate; E78.5 Hyperlipidemia, unspecified; I25.10 Atherosclerotic heart disease of native coronary artery without angina pectoris; R45.1 Restlessness and agitation; J44.9 Chronic obstructive pulmonary disease, unspecified; E87.70 Fluid overload, unspecified; I48.0 Paroxysmal atrial fibrillation; R09.02 Hypoxemia; M54.9 Dorsalgia, unspecified; Z99.81 Dependence on supplemental oxygen; I25.2 Old myocardial infarction
CPT/HCPCS: 94799; J2060; J2270